=== PATIENT | male | born 2000 | race Caucasian/White ===

== ENCOUNTER 2024-09-17 10:40 | Emergency (ER) | payer OTHER, SELFPAY ==
[2024-09-17 10:41] VITALS: BP 153/80; PULSE 64; RESP 16; TEMP 36.9; O2SAT 100; BMI 29.2
--- NOTE | 2024-09-17 11:05 | ED.VIS.CHEST ---
HPI History of Present Illness Chief Complaint: Chest Other Narrative Narrative: 24-year-old male who denies significant past medical history presents with left-sided chest pain that he has had since 530 this morning, approximately 5 and half hours ago. He denies any nausea or vomiting, no diaphoresis, no exacerbating or alleviating factors. He states that when he is at work, it seemed to have gotten worse. It is more of a sharp, stabbing pain that he feels around his heart or just below. He states that when he would lean forward or hunch over, he could not catch a deep breath, and gets sharp stabbing pain. If he sat directly upright, he was able to do so. He denies any recent fevers or chills, no cough, no leg swelling but he may have had right leg pain over the last few days. PFSH PFSH Allergy/AdvReac Type Severity Reaction Status Date / Time No Known Allergies Allergy Verified 09/17/24 10:43 Social History Smoking Status: Never smoker ROS ROS ED ROS Narrative Review of systems positive for left-sided pleuritic chest pain, no fevers or chills, no cough, no nausea or vomiting, no pedal edema, no diaphoresis. Better with sitting straight up, worse when bending over or hunching over. EXAM Physical Exam Narrative Exam Narrative: Afebrile. Vital signs noted. Nontoxic-appearing. Cardiovascular examination of is a regular rate and rhythm. Lungs are clear to auscultation bilaterally. Abdomen is soft, nontender, with out guarding or rebound, positive bowel sounds. Neurological examination nonfocal, nonlateralizing. Awake, alert, interactive, appropriate. No pedal edema appreciated bilaterally. Const Vital Signs: 09/17/24 10:41 09/17/24 11:08 09/17/24 11:46 Temperature 98.5 F Temperature Source Oral Pulse Rate 64 52 L Respiratory Rate 16 15 Blood Pressure 153/80 H 117/76 Blood Pressure Mean 104 89 Pulse Ox 100 100 Oxygen Delivery Method Room Air Room Air 09/17/24 12:10 09/17/24 13:03 Temperature Temperature Source Pulse Rate 120 H 58 L Respiratory Rate 17 16 Blood Pressure 114/56 L 109/76 Blood Pressure Mean 75 87 Pulse Ox 98 94 Oxygen Delivery Method Heart Score History: Slightly/Non-Suspicious ECG: Normal Age: </= 45 years Risk Factors: 1 or 2 Risk Factors Troponin: </= Normal Limit Score: 1 MDM MDM MDM Narrative Medical decision making narrative: Differential diagnosis includes but not limited to ACS versus pneumonia versus pneumothorax versus pulmonary embolism. Essentially, he is PERC negative with a pulse of 64 and pulse ox 100% on room air. I will obtain a D-dimer as well as chest x-ray and laboratory work including troponin series. I do feel that he would be able to be ruled out by biomarkers as he has a low heart score. EKG was obtained and interpreted by myself independently as sinus bradycardia at 57 bpm without ectopy or acute ST changes. No STEMI. I reviewed his laboratory work and he has normal white count 7.3 with hemoglobin 15.6, hematocrit 46.3, platelet count normal at 167. D-dimer is negative at 0.27, this in combination with his PERC negative score, I doubt pulmonary embolism. BMP is grossly unremarkable except for glucose of 104 with a normal anion gap of 10. Initial high-sensitivity troponin is less than 6 with repeat at 2 hours also being less than 6. Feel he has been ruled out for ACS with biomarkers. Chest x-ray interpreted by myself independently shows no evidence of a pneumonia or pneumothorax/pulmonary process that is acute. I reviewed the radiology report which confirms my independent interpretation. At this point in time, I do feel he can be discharged to follow-up with a primary care provider. He was reassured. Return instructions to the emergency department were reviewed. Disposition is discharged home in stable condition. History & Record Review Discussion w/independent historian: Patient Additional record(s) reviewed:: No prior records Lab Data Attestation: I reviewed the patient's lab results. Labs: Laboratory Results - last 24 hr 09/17/24 09/17/24 11:06 13:10 WBC 7.3 RBC 5.25 Hgb 15.6 Hct 46.3 MCV 88.2 MCH 29.7 MCHC 33.7 RDW Std Deviation 42.5 RDW Coeff of Alonzo 13.1 Plt Count 167 MPV 11.5 Immature Gran % (Auto) 0.400 Neut % (Auto) 58.4 Lymph % (Auto) 28.7 [place] % (Auto) 6.6 Eos % (Auto) 4.9 Baso % (Auto) 1.0 Absolute Neuts (auto) 4.3 Absolute Lymphs (auto) 2.09 Nucleated RBC % 0 D-Dimer Quant (PE/DVT) 0.27 Sodium 137 Potassium 4.4 Chloride 105 Carbon Dioxide 22.8 Anion Gap 10 BUN 18 Creatinine 0.84 Estim Creat Clear Calc 135.23 Est GFR (MDRD) Non-Af 124 BUN/Creatinine Ratio 21.3 H Glucose 104 H Calcium 8.8 Troponin T High Sens < 6 Troponin T Hi Sens 2 Hr < 6 Radiography Chest X-Ray - ED: 1 View, Read by ED Physician, Read by Radiologist and No Acute Disease Diagnostic Testing: Clinical Impression(s) from Imaging Studies Chest X-Ray 09/17/24 11:20 IMPRESSION: No acute process is identified in the chest. Reading [facility] Dis[facility] Triage Chief Complaint: Chest Other ED Provider: Bk Garza Dx/Rx/DC Orders Clinical Impression: Chest pain, Pleuritic pain Instructions: ED Chest Pain, Uncertain Cause, ED Pleurisy Referrals: Nick Biswas MD [Med Staff - Active Staff] - 3-5 Days if not improving Activity Restrictions/Additional Instructions: Return to the emergency department with increased pain, shortness of breath, fever, new or worsening symptoms. Follow-up with a primary care provider. Print Language: Bruneian Disposition Disposition: Home, Self Care
[2024-09-17 11:12] LABS: Absolute Lymphocyte Count 2.09 X10^3/uL (0.83-4.51); Absolute Neutrophil Count 4.3 X10^3/uL (2.0-7.7); Basophil# 0.07 X10^3/uL; Eosinophil# 0.36 X10^3/uL; Eosinophils% 4.9 % (0-5); Hematocrit 46.3 % (40-54); Hemoglobin 15.6 g/dL (13.0-16.5); Lymphocyte # 2.09 X10^3/ul (0.83-4.51); Lymphocyte % 28.7 % (19-41); Mean Corp Hgb Conc 33.7 g/dL (32-36); Mean Corpuscular Hgb 29.7 pg (27.0-32.0); Mean Corpuscular Volume 88.2 fL (80-94); Mean Platelet Vol. 11.5 fl (6.2-12.0); Monocyte# 0.48 X10^3/uL; Monocyte% 6.6 % (0-10); NRBC Flagged by Analyzer 0 % (0-5); Neutrophil # 4.25 X10^3/uL (2.7-7.7); Neutrophil % 58.4 % (47-70); Platelet Count 167 K/mm3 (150-450); RBC Distribution Width CV 13.1 % (11.6-14.6); RBC Distribution Width SD 42.5 fl (35.1-43.9); Red Blood Count 5.25 M/mm3 (4.6-6.2); White Blood Count 7.3 K/mm3 (4.4-11.0)
--- NOTE | 2024-09-17 11:20 | RAD_ITS ---
PROCEDURE: CHEST 1 VIEW (PORTABLE) 09/17/2024 REASON FOR EXAM: CHEST PAIN TECHNIQUE: Frontal view of the chest. COMPARISON: None FINDINGS: Heart size and mediastinal configuration appear within normal limits. There is no focal infiltrate or consolidation. There is no pneumothorax or effusion. There is no acute bony abnormality. RAD/Chest 1 View (Portable) IMPRESSION: No acute process is identified in the chest. Reading Location: [facility]
[2024-09-17 11:26] LABS: D-Dimer Quantitative (DVT/PE) 0.27 FEU/ug/m (0.27-0.49)
[2024-09-17 11:32] LABS: Troponin T High Sensitivity < 6 ng/L (<=22)
[2024-09-17 11:33] LABS: Anion Gap 10 (5-15); BUN 18 mg/dL (4-19); BUN/Creat Ratio 21.3 RATIO (10-20); Calcium,Total 8.8 mg/dL (7.6-11.0); Carbon Dioxide 22.8 mmol/L (21.0-32.0); Chloride 105 mmol/L (98-108); Creatinine, Serum 0.84 mg/dL (0.70-1.20); EST Glomerular Filtration Rate 124 (>60); Estimated Creatinine Clearance 135.23 ml/min (50-250); Glucose 104 mg/dL (70-99); Potassium 4.4 mmol/L (3.3-5.1); Sodium Level 137 mmol/L (133-145)
[2024-09-17 11:46] VITALS: BP 117/76; PULSE 52; RESP 15; O2SAT 100
[2024-09-17 12:10] VITALS: BP 114/56; PULSE 120; RESP 17; O2SAT 98
[2024-09-17 13:03] VITALS: BP 109/76; PULSE 58; RESP 16; O2SAT 94
[2024-09-17 13:39] LABS: Troponin T High Sens 2 HR < 6 ng/L (<=22)
[2024-09-17 13:59] VITALS: BP 109/76; PULSE 54; RESP 16; TEMP 36.6; O2SAT 93
== END 2024-09-17 14:05 | disposition home or self-care (01) ==
PROVIDERS: Emergency Provider Emergency Medicine; Visit Provider Emergency Medicine
DX: R07.81 Pleurodynia (principal)
CPT/HCPCS: 71045; 80048; 84484; 85025; 85379; 93005; 99284; A4216